=== PATIENT | female | born 1950 | race Hispanic/Latino ===

== ENCOUNTER 2019-02-22 13:38 | Emergency (ER) | payer OTHER, MEDICARE ==
[~2019-02-22 13:38] MED LIST: ACET1TAB12 PO
[2019-02-22] MEDS ORDERED: ONDANSETRON HCL 4 MG/2 ML VIAL ONE (14:16)
[2019-02-22 14:17] LABS: APPEARANCE,URINE Cloudy (CLEAR); BILIRUBIN,URINE Negative (NEGATIVE); COLOR,URINE Yellow (YELLOW); GLUCOSE, URINE (UA) Negative (NEGATIVE); KETONES,URINE 15 mg/dL (NEGATIVE); LEUKOCYTE ESTERASE ,URINE Moderate (NEGATIVE); NITRATE,URINE Negative (NEGATIVE); OCCULT BLOOD,URINE Negative (NEGATIVE); PROTEIN,URINE POS 1+ mg/dL (NEGATIVE); UROBILINOGEN,URINE 0.2 mg/dL (0.2-1.0)
[2019-02-22 14:20] LABS: CREATININE 1.4 mg/dL (0.5-1.5); POTASSIUM 3.3 mmol/L (3.5-5.1)
[2019-02-22 14:22] LABS: INR 1.02 (0.85-1.15); PARTIAL THROMBOPLASTIN TIME 30.8 SEC (26.3-35.5); PROTHROMBIN TIME 10.7 SEC (9.6-11.6)
[2019-02-22 14:25] LABS: ALBUMIN 3.8 g/dL (3.5-5.0); BILIRUBIN,TOTAL 1.2 mg/dL (0.2-1.0); TOTAL PROTEIN, SERUM 7.9 g/dL (6.0-8.3)
[2019-02-22 14:32] LABS: BASOPHILS % (AUTO) 0.4 % (0.0-5.0); HEMATOCRIT 39.8 % (36-48); LYMPHOCYTES % (AUTO) 14.4 % (21.0-51.0); MEAN CORPUSCULAR HEMOGLOBIN 28.8 pg (27.0-33.0); MEAN CORPUSCULAR HGB CONC 33.8 g/dL (32.0-36.0); MEAN CORPUSCULAR VOLUME 85.1 fL (79-99); MONOCYTES % (AUTO) 5.2 % (3.0-13.0); NUCLEATED RED BLOOD CELLS 0.1 % (0.0-0.19); PLATELET COUNT (AUTO) 233 K/uL (130-400); RED BLOOD CELL COUNT(AUTO) 4.68 MIL/uL (4.00-5.50); RED CELL DISTRIBUTION WIDTH 13.3 % (11.0-15.5); WHITE BLOOD COUNT (AUTO) 8.4 K/uL (4.8-10.8)
[2019-02-22] MEDS ORDERED: SODIUM CHLORIDE 0.9% 1000ML 1,000 ML IV ONE ×2 (14:32→15:22)
[2019-02-22 14:42] LABS: BACTERIA,URINE Many /HPF (None Seen); RBC,URINE None Seen /HPF (0-1)
[2019-02-22] MEDS ORDERED: LEVOFLOXACIN 500 MG/D5W 100 ML 100 ML ONE (15:06)
[2019-02-22] MEDS ORDERED: POTASSIUM CHLORIDE 20 MEQ ERTAB PO ONE (15:06)
== END 2019-02-22 16:48 | disposition home or self-care (01) ==
LOC: EDH 13:38
DX: E11.65 Type 2 diabetes mellitus with hyperglycemia (principal); E86.0 Dehydration; A09 Infectious gastroenteritis and colitis, unspecified; N39.0 Urinary tract infection, site not specified; K21.9 Gastro-esophageal reflux disease without esophagitis; Z79.84 Long term (current) use of oral hypoglycemic drugs
CPT/HCPCS: 36415; 71045; 80053; 81001; 82150; 82550; 82948; 83690; 84484; 85025; 85610; 85730; 87077; 87088; 87186; 93005; 96361; 96365; 96375; 99285; J1956; J2405; J7030 ×2

== ENCOUNTER 2025-03-28 22:04 | Emergency (ER) | payer OTHER, MEDICAID ==
[~2025-03-28] VITALS: Ht 157.5 cm; Wt 86.2 kg
[2025-03-28 22:36] LABS: IMMATURE GRANULOCYTE ABSOLUTE 0.01 K/uL (0-1); NUCLEATED RED BLOOD CELLS 0.0 % (0.0-0.19); PLATELET COUNT (AUTO) 280 K/uL (130-400); RED BLOOD CELL COUNT(AUTO) 4.15 MIL/uL (4.00-5.50); RED CELL DISTRIBUTION WIDTH 13.0 % (11.0-15.5); WHITE BLOOD COUNT (AUTO) 7.3 K/uL (4.8-10.8)
[2025-03-28 22:45] LABS: CREATININE 1.1 mg/dL (0.5-1.0); GLOMERULAR FILTR. RATE CALC 53.0 mL/min (>90); GLUCOSE,RANDOM 132.0 mg/dL (70-105); SODIUM SERUM 141.0 mmol/L (136-145); UREA NITROGEN, BLOOD 28.0 mg/dL (7-18)
--- NOTE | 2025-03-28 23:28 | HMCIMG ---
EXAMINATION: CT Head Without IV contrast. CLINICAL HISTORY: The patient presents with a headache following a fall. COMPARISON: None provided. TECHNIQUE: Axial computed tomography images of the head/brain without intravenous contrast. FINDINGS: BRAIN: No acute hemorrhage, mass lesion, midline shift, or extra-axial collection. No CT evidence for acute territorial infarct. Periventricular hypodensities are concerning for chronic microangiopathic ischemic changes. Generalized cerebral atrophy with prominent cortical sulci and bilateral sylvian fissures. VENTRICLES: No hydrocephalus. ORBITS: The orbits are unremarkable. SINUSES AND MASTOIDS: The paranasal sinuses and mastoid air cells are clear. BONES: No fracture. Hyperostosis frontalis interna. SOFT TISSUES: Unremarkable. IMPRESSION: No acute intracranial abnormality. Chronic microangiopathic ischemic changes. Generalized cerebral atrophy. Hyperostosis frontalis interna. /[place]
--- NOTE | 2025-03-28 23:31 | HMCIMG ---
EXAMINATION: CT Cervical Spine Without IV contrast. CLINICAL HISTORY: Patient presents with headache following a fall. COMPARISON: None provided. TECHNIQUE: Axial computed tomography images of the cervical spine without intravenous contrast. Sagittal and coronal reformatted images were generated. FINDINGS: ALIGNMENT: Straightening of the cervical spine, possibly due to paraspinal muscle spasm. Bony alignment is anatomic. DEGENERATIVE CHANGES: Multilevel spondylotic changes with marginal osteophytes, facetal arthropathy, and uncovertebral hypertrophy. Diffuse disc bulge with bilateral lower lateral uncovertebral osteophyte at C4-C5. Disc bulges at C5-C6 and C6-C7 levels indenting the anterior subarachnoid space. Bilateral mild neural foraminal narrowing at C5-C6 and C6-C7 levels. SOFT TISSUES: The prevertebral soft tissues are within normal limits. BONES: Focal cortical irregularity involving the tip of the odontoid process of C2 vertebra. No acute fracture or aggressive appearing osseous lesion. IMPRESSION: No acute cervical spine fracture. Multilevel cervical spondylotic changes with disc bulges and anterior subarachnoid space indentation at C4-C5, C5-C6, and C6-C7. Bilateral mild neural foraminal narrowing at C5-C6 and C6-C7. Focal cortical irregularity of the odontoid tip. Straightening of the cervical spine, possibly due to muscle spasm. /[place]
--- NOTE | 2025-03-28 23:44 | ERN ---
ED Note History of Present Illness Stated Complaint: FALL, NECK AND HEAD PAIN, 3 WEEKS AGO Chief Complaint: Mechanical Fall Time Seen by MD: 22:12 Dictation: This is a 75-year-old female who apparently sustained a fall 3 or 4 weeks ago and she has not had any issues with fractures or ambulation no lacerations no loss of consciousness. She began experiencing some neck pain and back sided head pain and she came into the ER for further evaluation. No fever chills or rigors. No diplopia blurred vision motor weakness or seizure activity no facial asymmetry. Patient is not on any blood thinners. The neck pain is diffusely throughout the neck. Temperature 98.2 pulse 87 respirations 10 but blood pressure 208/78 pulse oximetry 98% on room air Patient has a known history of hypertension, diabetes mellitus, arthritis Allergies: Coded Allergies: No Known Drug Allergies (Unverified Allergy, Unknown, 07/10/15) Home Meds Active Scripts Tramadol Hcl (Tramadol HCl) 50 Mg Tablet, 50 MG PO QID for pain, #16 TAB 0 Refills Prov:ANA VARNER MD 03/29/25 Prednisone (Prednisone) 20 Mg Tablet, 1 TAB PO AD for 6 Days, #14 TAB 0 Refills TAKE 1 TAB BY MOUTH THREE TIMES PER DAY X3 DAYS, THEN TAKE 1 TAB BY MOUTH TWICE A DAY X2 DAYS, THEN TAKE 1 TAB BY MOUTH ONCE A DAY X1 DAY. Prov:ANA VARNER MD 03/29/25 Cyclobenzaprine HCl (Cyclobenzaprine HCl) 5 Mg Tablet, 1 TAB PO TIDP PRN for muscle spasms for 5 Days, #15 TAB 0 Refills Prov:ANA VARNER MD 03/29/25 Acetaminophen with Codeine (Tylenol with Codeine #3 Tablet) 1 Each Tablet, 1-2 TAB PO Q6H PRN for PAIN, #25 TAB Prov:CLAUDETTE COLON MD 07/13/15 Past Medical History Past Medical History: Diabetes-Type II, Hypertension Surgical History: None Family History: Negative Social History: Negative History: Not Applicable RN Note Reviewed/Agreed w/PFSH: Yes Review of System Dictation Constitutional: Negative for fever,chills, and weight loss Eyes: Negative for injury, pain,redness, and discharge ENT: Negative for injury,pain or swelling Cardiovascular: Negative for chest pain, palpitations, and edema Respiratory: Negative for shortness of breath, cough, and wheezing, Abdomen/GI: Negative for abdominal pain, nausea, vomiting, diarrhea, and constipation Back: Negative for injury and pain : Negative for injury, bleeding and discharge MS/Extremity: Negative for injury and deformity Skin: Negative for rash, and discoloration Neuro: Negative for headache, weakness, numbness, tingling, and seizure positive for neck pain and occipital area pain Psych: Negative for suicide ideation, homicidal ideation, and hallucinations Initial Vital Sign VS Vital Signs Date Time Temp Pulse Resp B/P (MAP) Pulse Ox O2 Delivery O2 Flow Rate FiO2 03/28/25 22:06 98.2 87 18 208/78 98 Room Air 03/28/25 22:30 0 21 Physical Exam Dictation General: awake, alert, NAD patient and cervical collar during my exam Head/Face: Normocephalic, atraumatic Eyes: PERRL, EOMI, vision at baseline ENT: oral cavity clear, TMs clear, no signs of infection Neck: Trachea midline, supple, no nuchal rigidity no step-off no point t enderness in the neck muscles are tender Cardiovascular: RRR, normal S1/S2, No MRGs, no JVD Respiratory: CTAB, no respiratory distress, No rales or wheezes Abdomen: Soft, non-tender, non-distended, normal bowel sounds, no guarding or rebound. Skin: Warm, dry, normal turgor, no rash MS/Extremity: Pulses equal, no cyanosis, neurovascular intact, FROM Neuro: COAx4, GCS 15, strength 5/5, CN 2-12 intact, normal cerebellar exam, normal gait, Psych: Normal behavior, mood, and affect normal Extremities-trace edema without any palpable cords, Homans sign is negative Results (Laboratory/Radiology) Laboratory/Radiology Laboratory Tests Test 03/28/25 22:28 White Blood Count 7.3 K/uL (4.8-10.8) Red Blood Count 4.15 MIL/uL (4.00-5.50) Hemoglobin 12.0 g/dL (12.0-16.0) Hematocrit 35.4 % (36-48) L Mean Corpuscular Volume 85.3 fL (79-99) Mean Corpuscular Hemoglobin 28.9 pg (27.0-33.0) Mean Corpuscular Hemoglobin Concent 33.9 g/dL (32.0-36.0) Red Cell Distribution Width 13.0 % (11.0-15.5) Platelet Count 280 K/uL (130-400) Mean Platelet Volume 9.3 fL (7.5-10.5) Immature Granulocyte % (Auto) 0.1 % (0-1) Neutrophils (%) (Auto) 39.7 % (40.0-77.0) L Lymphocytes (%) (Auto) 49.3 % (21.0-51.0) Monocytes (%) (Auto) 7.6 % (3.0-13.0) Eosinophils (%) (Auto) 2.6 % (0.0-8.0) Basophils (%) (Auto) 0.7 % (0.0-5.0) Neutrophils # (Auto) 2.9 K/uL (1.8-7.7) Lymphocytes # (Auto) 3.6 K/uL (1.0-4.8) Monocytes # (Auto) 0.6 K/uL (0.1-1.0) Eosinophils # (Auto) 0.19 K/uL (0.00-0.70) Basophils # (Auto) 0.05 K/uL (0.00-0.20) Absolute Immature Granulocyte (auto 0.01 K/uL (0-1) Nucleated Red Blood Cells 0.0 % (0.0-0.19) Sodium Level 141 mmol/L (136-145) Potassium Level 4.2 mmol/L (3.5-5.1) Chloride Level 103 mmol/L (101-111) Carbon Dioxide Level 29 mmol/L (21-32) Blood Urea Nitrogen 28 mg/dL (7-18) H Creatinine 1.1 mg/dL (0.5-1.0) H Glomerular Filtration Rate Calc 53 mL/min (>90) Random Glucose 132 mg/dL (70-105) H Total Calcium 9.4 mg/dL (8.5-10.1) Labs Reviewed?: Yes CT Scan Comment: JAEL: fall with headache ORDERING PHYSICIAN: ANA VARNER MD PROCEDURE: C SPIN WO - CT CERVICAL SPINE W/O CONTRAST EXAMINATION: CT Cervical Spine Without IV contrast. CLINICAL HISTORY: Patient presents with headache following a fall. COMPARISON: None provided. TECHNIQUE: Axial computed tomography images of the cervical spine without intravenous contrast. Sagittal and coronal reformatted images were generated. FINDINGS: ALIGNMENT: Straightening of the cervical spine, possibly due to paraspinal muscle spasm. Bony alignment is anatomic. DEGENERATIVE CHANGES: Multilevel spondylotic changes with marginal osteophytes, facetal arthropathy, and uncovertebral hypertrophy. Diffuse disc bulge with bilateral lower lateral uncovertebral osteophyte at C4-C5. Disc bulges at C5-C6 and C6-C7 levels indenting the anterior subarachnoid space. Bilateral mild neural foraminal narrowing at C5-C6 and C6-C7 levels. SOFT TISSUES: The prevertebral soft tissues are within normal limits. BONES: Focal cortical irregularity involving the tip of the odontoid process of C2 vertebra. No acute fracture or aggressive appearing osseous lesion. IMPRESSION: No acute cervical spine fracture. Multilevel cervical spondylotic changes with disc bulges and anterior subarachnoid space indentation at C4-C5, C5-C6, and C6-C7. Bilateral mild neural foraminal narrowing at C5-C6 and C6-C7. Focal cortical irregularity of the odontoid tip. Straightening of the cervical spine, possibly due to muscle spasm. /[place] DICTATED BY: KEYSHA YOUNG Jr., MD DATE: 03/29/2529 ELECTRONICALLY SIGNED BY: KEYSHA YOUNG Jr., MD DATE: 03/29/2529 REASON: fall with headache ORDERING PHYSICIAN: ANA VARNER MD PROCEDURE: HEAD WO - CT HEAD/BRAIN W/O CONTRAST EXAMINATION: CT Head Without IV contrast. CLINICAL HISTORY: The patient presents with a headache following a fall. COMPARISON: None provided. TECHNIQUE: Axial computed tomography images of the head/brain without intravenous contrast. FINDINGS: BRAIN: No acute hemorrhage, mass lesion, midline shift, or extra-axial collection. No CT evidence for acute territorial infarct. Periventricular hypodensities are concerning for chronic microangiopathic ischemic changes. Generalized cerebral atrophy with prominent cortical sulci and bilateral sylvian fissures. VENTRICLES: No hydrocephalus. ORBITS: The orbits are unremarkable. SINUSES AND MASTOIDS: The paranasal sinuses and mastoid air cells are clear. BONES: No fracture. Hyperostosis frontalis interna. SOFT TISSUES: Unremarkable. IMPRESSION: No acute intracranial abnormality. Chronic microangiopathic ischemic changes. Generalized cerebral atrophy. Hyperostosis frontalis interna. /[place] DICTATED BY: KEYSHA YOUNG Jr., MD DATE: 03/29/2526 ELECTRONICALLY SIGNED BY: KEYSHA YOUNG Jr., MD DATE: 03/29/2526 ED Course ED Course Orders Procedure Category Date Status Time Cbc With Differential LAB 03/28/25 Complete 22:13 Basic Metabolic Panel LAB 03/28/25 Complete 22:13 Ct Head/Brain W/O CT 03/28/25 Resulted Contrast 22:13 Ct Cervical Spine W/O CT 03/28/25 Resulted Contrast 22:13 Morphine 2mg Syg PHA 03/28/25 Complete (Morphine 2mg Syg) 22:30 Cyclobenzaprine Hcl PHA 03/29/25 Complete (Cyclobenzaprine Hcl 00:30 Morphine 2mg Syg PHA 03/29/25 Complete (Morphine 2mg Syg) 00:30 Methylprednisolone PHA 03/29/25 Complete Succ 125mg (Solu-Medr 00:30 Current Medications Medications (Trade) Dose Ordered Sig/[place] Route PRN Reason Start Time Stop Time Status Last Admin Dose Admin Cyclobenzaprine HCl (Cyclobenzaprine HCl) 5 mg ONCE ONCE PO 03/29/25 00:30 03/29/25 00:31 DC 03/29/25 00:46 Methylprednisolone Sodium Succinate (Solu-medROL 125MG) 60 mg ONCE ONCE IVP 03/29/25 00:30 03/29/25 00:31 DC 03/29/25 00:47 Morphine Sulfate (morPHINE 2MG SYG) 2 mg ONCE ONCE IVP 03/28/25 22:30 03/28/25 22:31 DC 03/28/25 22:40 Morphine Sulfate (morPHINE 2MG SYG) 2 mg ONCE ONCE IVP 03/29/25 00:30 03/29/25 00:31 DC 03/29/25 00:46 Vital Signs Date Time Temp Pulse Resp B/P (MAP) Pulse Ox O2 Delivery O2 Flow Rate FiO2 03/29/25 01:43 98.8 84 17 139/57 96 Room Air* 0 21 03/28/25 23:16 98.8 80 17 147/68 96 Room Air* 0 21 03/28/25 22:30 98.8 92 18 190/70 96 Room Air* 0 21 03/28/25 22:06 98.2 87 18 208/78 98 Room Air We will perform diagnostic labs, advanced imaging and administer medications a ccording to the patient's complaint. Once the results are available, will review and personally interpreted the labs to rule out any acute life- threatening emergency the trach require immediate intervention and treatment. I will then re-evaluate the patient after treatment and diagnostic exams have return to determine whether the patient requires any further testing, can safely be discharged home or need further admission to hospital for additional treatment and evaluation. I reviewed labs CBC is with a normal limits BNP 7 showed a BUN and creatinine of 28 and 1.[address] scan of the head and C-spine are pending I updated the patient and family member on all the test results including the CT scan of the head and the neck pain and evidence of arthritis and possible radiculopathy She responded very well to the pain medicine and muscle relaxant and I asked her to see an neurosurgeon as outpatient and referral was given Medical Decision Making MDM MDM: Differential diagnosis: Rationale: Tests considered and ordered secondary to shared decision making include: Previous outside records reviewed: Old ER visits. Risk of complication and/or morbidity or mortality of patient management: None Medications-Per medication reconciliation Need for hospitalization: Patient does not meet criteria for hospitalization. Need for emergency major/minor surgery: No There are no social concerns with this patient. Prescription drug management Prescriptions will include symptomatic care Patient's prior external medical records from other ER visits were reviewed by me as indicated. Prior testing and results from previous visits were reviewed. Prior tests were taken into account with medical decision making and resource utilization, independent historian/historians were used to obtain complete medical history. I independently interpreted the test that were performed, results were reviewed by me and considered findings on radiology if ordered. Medical management and examination interpretation discussions were had by me with other qualified healthcare professionals as indicated for the patient's care. Problem List Problem List: (1) Neck pain (2) Headache (3) Cervical paraspinal muscle spasm (4) Cervical radiculopathy due to degenerative joint disease of spine (5) History of fall within past 90 days DX & DISP Disposition: Discharge Departure Impression: Primary Impression: History of fall within past 90 days Additional Impressions: Neck pain, Cervical radiculopathy due to degenerative joint disease of spine, Cervical paraspinal muscle spasm, Headache Condition: Stable Scripts Tramadol Hcl (Tramadol HCl) 50 Mg Tablet 50 MG PO QID for pain, #16 TAB 0 Refills Prov: ANA VARNER MD 03/29/25 Prednisone (Prednisone) 20 Mg Tablet 1 TAB PO AD for 6 Days, #14 TAB 0 Refills TAKE 1 TAB BY MOUTH THREE TIMES PER DAY X3 DAYS, THEN TAKE 1 TAB BY MOUTH TWICE A DAY X2 DAYS, THEN TAKE 1 TAB BY MOUTH ONCE A DAY X1 DAY. Prov: ANA VARNER MD 03/29/25 Cyclobenzaprine HCl (Cyclobenzaprine HCl) 5 Mg Tablet 1 TAB PO TIDP PRN for muscle spasms for 5 Days, #15 TAB 0 Refills Prov: ANA VARNER MD 03/29/25 Additional Instructions: Patient and the caregiver have been informed of all the diagnostic tests and the imaging conducted during the today's visit to the emergency room and has verbalized understanding of the results I have personally reviewed and interpreted all diagnostic exams performed here in the ER today as well as the vital signs documented by the nursing staff. The patient is now being discharged to home and should follow up with the primary care physician or the specialist as directed by the ER staff. Follow-up with primary care provider in 1 to 2 days. Take medications as directed here in the emergency room. Okay to continue home medications unless otherwise discussed during your visit in the emergency room today. Return to your nearest emergency room if symptoms worsen or if there is no improvement. Call 911 if you need immediate assistance. Take Tylenol or Motrin [id number] as needed and if no contraindications are present. Increase oral hydration. A wound culture or urine culture was ordered here in the emergency room department please follow-up with primary care provider and advise them to get repeat ports from our facility. If you had any Casey wrap/splints that were applied here, please do not remove them until you see your primary care or specialty. Referrals: HECTOR ORELLANA MD (PCP) ANA VARNER MD Mar 28, 2025 23:44
[2025-03-29] MEDS: CYCLOBENZAPRINE HCL 10 MG TABLET PO ONE (00:46)
[2025-03-29] MEDS ORDERED: CYCL5TAB3 PO (01:13)
[2025-03-29] MEDS ORDERED: TRAM50TA4 PO (01:13)
[2025-03-29] MEDS ORDERED: PRED20TA3 PO (01:13)
[2025-03-29 01:43] VITALS: BP 139/57; PULSE 84; RESP 17; TEMP 98.8; O2SAT 96
== END 2025-03-29 02:01 | disposition home or self-care (01) ==
LOC: EDH 22:04
DX: M47.22 Other spondylosis with radiculopathy, cervical region (principal); M62.838 Other muscle spasm; R51.9 Headache, unspecified; E11.9 Type 2 diabetes mellitus without complications; I10 Essential (primary) hypertension; Z79.899 Other long term (current) drug therapy
CPT/HCPCS: 99285; 70450; 96374; 80048; 85025; 36415; 72125; 96375; 96376; J2270 ×2; J2919